=== PATIENT | male | born 1955 | race Caucasian/White ===

== ENCOUNTER 2018-03-11 14:39 | Inpatient (IN) | payer OTHER ==
--- NOTE | 2018-03-11 17:09 | C.PDOC ---
History Of Present Illness 62 y/o male presents to the ER for evaluation of left elbow, left ribs, and left hip which began after he fell 2 days ago. Patient states that he is not sure of how he fell. Patient reports that he saw his PMD who referred him to the ER.Denies having weakness, numbness, and other complaints at this time. Of note, HPI is limited because patient is poor historian. - HPI Time Seen by Provider: 03/11/18 15:55 Chief Complaint (Nursing): Abdominal Pain History Per: Patient History/Exam Limitations: other (poor historian) Onset/Duration Of Symptoms: Days Severity: Moderate Past Medical History Reviewed: Historical Data, Nursing Documentation, Vital Signs Vital Signs: Last Vital Signs Temp 99.0 F 03/13/18 15:13 Pulse 106 H 03/13/18 16:00 Resp 20 03/13/18 15:13 BP 152/88 H 03/13/18 14:20 Pulse Ox 96 03/13/18 15:13 - Medical History PMH: Bronchitis, Diabetes, HTN Surgical History: No Surg Hx Family History: States: No Known Family Hx - Social History Hx Tobacco Use: No Hx Alcohol Use: No Hx Substance Use: No - Immunization History Hx Tetanus Toxoid Vaccination: No Hx Influenza Vaccination: No Hx Pneumococcal Vaccination: No Review Of Systems Except As Marked, All Systems Reviewed And Found Negative. Constitutional: Negative for: Fever, Chills Cardiovascular: Negative for: Other (left -sided rib pain) Musculoskeletal: Positive for: Other (left elbow, left hip pain) Neurological: Negative for: Weakness, Numbness Physical Exam - Physical Exam Appears: Non-toxic, No Acute Distress Skin: Normal Color, Warm, Dry Head: Atraumatic, Normacephalic Eye(s): bilateral: Normal Inspection Nose: Normal Oral Mucosa: Moist Neck: Supple Chest: Symmetrical, Tenderness (tenderness to left side) Cardiovascular: Rhythm Regular Respiratory: Normal Breath Sounds, No Rales, No Rhonchi, No Wheezing Gastrointestinal/Abdominal: Normal Exam, Soft, No Tenderness, No Guarding, No Rebound Extremity: Normal ROM, Tenderness (tenderness to left elbow,left hip, and left knee) Neurological/Psych: Oriented x3, Normal Speech ED Course And Treatment - Laboratory Results Result Diagrams: 03/13/18 08:37 03/13/18 17:08 ECG: Interpreted By Me, Viewed By Me ECG Rhythm: Sinus Rhythm Interpretation Of ECG: NSR with repolarization abnormality Rate From EC O2 Sat by Pulse Oximetry: 99 (RA) Pulse Ox Interpretation: Normal - CT Scan/US CT Head Other Rad Studies (CT/US): Read By Radiologist, Radiology Report Reviewed CT/US Interpretation: EXAM: CT Head Without Intravenous Contrast. CLINICAL HISTORY: 62 years old, male; Injury or trauma; Fall; Initial encounter; Blunt trauma (contusions or hematomas). TECHNIQUE: Axial computed tomography images of the head/brain without intravenous contrast. All CT scans at. this facility use at least one of these dose optimization techniques: automated exposure control; mA. and/or kV adjustment per patient size (includes targeted exams where dose is matched to clinical. indication); or iterative reconstruction. COMPARISON: No relevant prior studies available. FINDINGS: Brain: Mild to moderate volume loss is seen in keeping with age, with mild decrease in attenuation of. the periventricular white matter likely related to small vessel ischemic change. The brain otherwise. appears unremarkable. There is normal toro-white matter differentiation, demonstrating no edema,. mass effect , acute hemorrhage, or focal mass. Ventricles: Unremarkable. No ventriculomegaly. Bones/joints: Unremarkable. No acute fracture. Soft tissues : Unremarkable. Sinuses: Mucosal thickening associated with the frontal sinuses and ethmoids. The remaining. sinuses appear clear of fluid and mucoperiosteal thickening. Mastoid air cells: Unremarkable as visualized. No mastoid effusion. IMPRESSION: Age -related atrophy and chronic white matter ischemic changes, with no evidence of an acute. intracranial abnormality. Mild Sinus Disease As above. Left Lower Extremity CT Other Rad Studies (CT/US): Read By Radiologist, Radiology Report Reviewed CT/US Interpretation: EXAM: CT Left Lower Extremity Without Intravenous Contrast, Hip. CLINICAL HISTORY: 62 years old, male; Injury or trauma; Fall; Initial encounter; Fracture, traumatic; Nondisplaced; Hip;. Left; Additional info: Trauma, hip fracture. TECHNIQUE: Axial computed tomography images of the left hip without intravenous contrast. All CT scans at this. facility use at least one of these dose optimization techniques: automated exposure control; mA. and/or kV adjustment per patient size (includes targeted exams where dose is matched to clinical. indication); or iterative reconstruction. COMPARISON: No relevant prior studies available. FINDINGS: Bones/joints: The bones show no destructive lytic osseous changes, no periosteal reaction. Small. subcapital left hip fracture with mild impaction displacement, no significant angulation is seen. No. dislocation. Soft tissues: There has been a left inguinal hernia repair. No evidence of soft tissue hematoma. IMPRESSION: There is a subcapital fracture of the left hip as described CT Abdomen/Pelvis Other Rad Studies (CT/US): Read By Radiologist, Radiology Report Reviewed CT/US Interpretation: EXAM: CT Abdomen and Pelvis With Intravenous Contrast. CLINICAL HISTORY: 62 years old, male; Pain and injury or trauma; Fall; Initial encounter; Swelling; Lower; Abdominal. pain; Flank; Left lower quadrant (llq). TECHNIQUE: Axial computed tomography images of the abdomen and pelvis with intravenous contrast. All CT. scans at this facility use at least one of these dose optimization techniques: automated exposure. control; mA and/or kV adjustment per patient size (includes targeted exams where dose is matched to. clinical indication); or iterative reconstruction. CONTRAST: 100 mL of VISIPAQUW 320 administered intravenously. COMPARISON: No relevant prior studies available. FINDINGS: Artifacts: Motion artifact does moderately limit the sensitivity of this examination. Lung bases: The visualized portions of the lung bases are normal. ABDOMEN: Liver: Liver is normal without focal injury, laceration or hematoma. Gallbladder and bile ducts: Unremarkable. No calcified stones. No ductal dilation. No significant. wall thickening. Pancreas: Unremarkable. No mass. No ductal dilation. Spleen: There is no evidence for for splenic injury or focal laceration. No perisplenic hemorrhage or. fluid seen. Adrenals: Unremarkable. No mass. Kidneys and ureters: Both kidneys are normal in morphology and demonstrate homogeneous. enhancement without mass. No ureteral enlargement or stones are noted. Stomach and bowel: Bowel loops appear within normal limits, no signs of wall thickening, mucosal. edema, or bowel distention. PELVIS: Appendix: The appendix is not definitively visualized. However, no secondary signs of appendicitis. are present. Bladder: Unremarkable. No mass. Reproductive: Prostate is slightly prominent. ABDOMEN and PELVIS: Intraperitoneal space: No evidence of mesenteric hematoma contusion, no free fluid or hemorrhage. in the peritoneal cavity. No free air. Bones/joints: There are healed left rib fractures. The spine demonstrates moderate degenerative. changes at multiple levels. Partially impacted and minimally displaced subcapital fracture of the left. hip. No dislocation. Soft tissues: Unremarkable. Vasculature: The aorta demonstrates moderate atherosclerotic calcification. No abdominal aortic. aneurysm. Lymph nodes: Unremarkable. No enlarged lymph nodes. IMPRESSION: There is an acute subcapital fracture of the left hip present. Please see CT left hip report. Otherwise no acute findings or significant abdominal or pelvic injuries. Incidental and other non-acute findings are described above. Left Upper Extremity CT Other Rad Studies (CT/US): Read By Radiologist, Radiology Report Reviewed CT/US Interpretation: EXAM: CT Left Upper Extremity Without Intravenous Contrast, Elbow. CLINICAL HISTORY: 62 years old, male; Injury or trauma; Fall ; Initial encounter; Fracture, traumatic injury; Nondisplaced;. Elbow; Left; Additional info: Trauma, elbow fracture. TECHNIQUE: Axial computed tomography images of the left elbow without intravenous contrast. All CT scans at. this facility use at least one of these dose optimization techniques: automated exposure control; mA. and/or kV adjustment per patient size (includes targeted exams where dose is matched to clinical. indication); or iterative reconstruction. COMPARISON: No relevant prior studies available. FINDINGS: Bones/joints: Fracture is present involving the distal humerus with intra- articular extension which is. mildly displaced. This involves the lateral epicondyle. There is moderate hemarthrosis present. involving the elbow joint. No dislocation is present. There are healed left rib fractures. Soft tissues: There is moderate soft tissue edema posterior to the elbow. Elbow joint continued: There is moderate joint space loss and adaptive sclerosis of the elbow joint. presence with small marginal osteophytes. IMPRESSION: Intra- articular fracture of the elbow originating from the lateral epicondyle with moderate. hemarthrosis rate. Degenerative changes at the elbow joint as described. Moderate soft tissue edema associated with the elbow posterior to olecranon. No dislocation of the joint. Medical Decision Making Medical Decision Making: Plan: --Labs --UA --X-Ray-Left Chest an Ribs --X-Ray - Left Elbow --X- Ray - Hip/Pelvis --X-Ray - Left Femur --X-Ray- Left Knee --Tylenol PO Disposition - Disposition Disposition: HOSPITALIZED Disposition Time: 11:00 Condition: FAIR - Clinical Impression Clinical Impression: Rib fracture, Elbow fracture, Hip fracture - Scribe Statement The provider has reviewed the documentation as recorded by the Alessio Feliciano Provider Attestation: All medical record entries made by the Scribe were at my direction and personally dictated by me. I have reviewed the chart and agree that the record accurately reflects my personal performance of the history, physical exam, medical decision making, and the department course for this patient. I have also personally directed, reviewed, and agree with the discharge instructions and disposition. Decision To Admit - Pt Status Changed To: Hospital Disposition Of: Inpatient - Admit Certification Admit to Inpatient:: After my assessment, the patient will require hospitalization for at least two midnights. This is because of the severity of symptoms shown, intensity of services needed, and/or the medical risk in this patient being treated as an outpatient. - InPatient: Physician Admission Certification: I certify that this patient requires 2 or more midnights of care for the following reason:: needs or - . Bed Request Type: Regular Admitting Physician: Adali Beach Patient Diagnosis: Rib fracture, Elbow fracture, Hip fracture
--- NOTE | 2018-03-11 17:16 | RAD ---
PROCEDURE: Radiographs of the Chest and Left Ribs. HISTORY: trauma COMPARISON: Chest radiograph dated 04/25/2016. TECHNIQUE: Frontal radiograph of the chest and multiple oblique radiographs of the left ribs were obtained. FINDINGS: LEFT RIBS: Minimally displaced fractures of the lateral left 7th-9th ribs. Questionable minimally displaced fracture of the lateral left 2nd rib. LUNGS: Clear. PLEURA: No pneumothorax or pleural fluid. CARDIOVASCULAR: Normal sized heart. No pulmonary vascular congestion. OTHER FINDINGS: None. IMPRESSION: Minimally displaced fractures of the left lateral 7th- 9th ribs. Questionable minimally displaced fracture of the left lateral 2nd rib.
--- NOTE | 2018-03-11 17:17 | RAD ---
PROCEDURE: Radiographs of the pelvis and bilateral hips HISTORY: trauma COMPARISON: None. FINDINGS: BONES: Pelvis: Unremarkable. Right hip:Unremarkable. Left hip:Minimally displaced subcapital femoral neck fracture. JOINTS: Right hip: Unremarkable. Left hip: Unremarkable. Sacroiliac Joints: Unremarkable. Pubic symphysis: Unremarkable. SOFT TISSUES: Normal. OTHER FINDINGS: None. IMPRESSION: Minimally displaced left subcapital femoral neck fracture.
--- NOTE | 2018-03-11 17:18 | RAD ---
PROCEDURE: Left Knee Radiographs. HISTORY: Pain. COMPARISON: None. FINDINGS: BONES: No acute fracture. JOINTS: Tricompartmental narrowing without significant degenerative spurring. JOINT EFFUSION: None. OTHER FINDINGS: None. IMPRESSION: No demonstrated fracture dislocation. Mild degenerative changes.
--- NOTE | 2018-03-11 17:20 | RAD ---
PROCEDURE: Radiographs of the left elbow. HISTORY: trauma COMPARISON: No prior. FINDINGS: BONES: Comminuted intra-articular fracture of the lateral condyle. JOINTS: Medial subluxation of the radius and ulna relative to the humerus. SOFT TISSUES: Diffuse soft-tissue swelling. JOINT EFFUSION: Large anterior joint effusion. OTHER FINDINGS: None IMPRESSION: Comminuted intra-articular fracture of the distal humerus as described above with medial subluxation of the radius and ulna.
--- NOTE | 2018-03-11 17:21 | RAD ---
PROCEDURE: Left Femur Radiographs. HISTORY: trauma COMPARISON: None. TECHNIQUE: AP and Lateral Radiographs of the left femur. FINDINGS: FEMUR: Subcapital femoral neck fracture. SOFT TISSUES: Normal. OTHER FINDINGS: None. IMPRESSION: Subcapital femoral neck fracture.
[2018-03-11 17:43] LABS: BASO % 0.7 % (0.0-2.0); EOS # 0.1 K/uL (0.0-0.7); EOS % 2.3 % (0.0-4.0); HEMOGLOBIN 13.4 g/dL (12.0-18.0); LYMPH # 1.4 K/uL (1.0-4.3); LYMPH % 38.1 % (20.0-40.0); MEAN CELL VOLUME 86.3 fL (80.0-94.0); MEAN CORPUSCULAR HEMOGLOBIN 28.6 pg (27.0-31.0); MEAN CORPUSCULAR HGB CONC 33.2 g/dL (33.0-37.0); MEAN PLATELET VOLUME 8.8 fL (7.2-11.7); MONO # 0.4 K/uL (0.0-0.8); MONO % 9.5 % (0.0-10.0); NEUT # 1.9 K/uL (1.8-7.0); NEUT % 49.4 % (50.0-75.0); RBC 4.67 Mil/uL (4.40-5.90); RED CELL DISTRIBUTION WIDTH 14.9 % (11.5-14.5); WHITE BLOOD COUNT 3.8 K/uL (4.8-10.8)
[2018-03-11 17:58] LABS: INR 1.2; PROTHROMBIN TIME 13.6 SECONDS (9.7-12.2)
[2018-03-11 17:59] LABS: ALB/GLOB RATIO 1.6 (1.0-2.1); ALBUMIN 4.4 g/dL (3.5-5.0); ALT/SGPT 25 U/L (21-72); AST/SGOT 34 U/L (17-59); BLOOD UREA NITROGEN 13 mg/dL (9-20); CALCIUM 9.4 mg/dl (8.6-10.4); GFR AFRICAN-AMERICAN > 60; GFR NON-AFRICAN AMERICAN > 60; LIPASE 289 U/L (23-300)
[2018-03-11] MEDS ORDERED: Potassium Chloride 20 mEq ER Tab PO STA (18:08)
[2018-03-11] MEDS ORDERED: Morphine 4 MG/ML VIAL ONE ×2 (18:49→18:54)
[2018-03-11] MEDS ORDERED: Potassium Chloride 20 mEq ER Tab PO ONE (18:49)
[2018-03-11] MEDS ORDERED: Iodixanol 320 MG/ML 100 ML BOTTLE IV ONE (18:56)
[2018-03-11 20:09] LABS: URINE BILIRUBIN NEGATIVE (NEGATIVE); URINE BLOOD 1+ (NEGATIVE); URINE CLARITY Clear (Clear); URINE COLOR Yellow (YELLOW); URINE GLUCOSE (UA) NORMAL (Normal); URINE LEUKOCYTE ESTERASE TRACE Leu/uL (Negative); URINE PROTEIN NEGATIVE (NEGATIVE); URINE UROBILINOGEN NORMAL mg/dL (0.2-1.0)
[2018-03-12] MEDS ORDERED: Oxycodone/Acetaminophen 5/325 mg Tab ONE ×2 (00:26→06:33)
[2018-03-12] MEDS: Oxycodone/Acetaminophen 5/325 mg Tab PO PRN ×4 (00:27→22:37)
--- NOTE | 2018-03-12 08:01 | CT ---
Date of service: 03/11/2018 PROCEDURE: CT HEAD WITHOUT CONTRAST. HISTORY: trauma COMPARISON: 04/25/2016 TECHNIQUE: Axial computed tomography images were obtained through the head/brain without intravenous contrast. Radiation dose: Total exam DLP = 918 mGy-cm. This CT exam was performed using one or more of the following dose reduction techniques: Automated exposure control, adjustment of the mA and/or kV according to patient size, and/or use of iterative reconstruction technique. FINDINGS: HEMORRHAGE: No intracranial hemorrhage. BRAIN: Mild to moderate volume loss is seen in keeping with mild decreased attenuation of the periventricular white matter likely related to small vessel ischemic change. Stable area of low attenuation seen within the anterior medial right temporal lobe best seen on series 4, image 9 suggestive for possible chronic ischemic change. VENTRICLES: Unremarkable. No hydrocephalus. CALVARIUM: Unremarkable. PARANASAL SINUSES: Mucosal thickening of the frontal sinuses and ethmoid air cells. MASTOID AIR CELLS: Unremarkable as visualized. No inflammatory changes. OTHER FINDINGS: None. IMPRESSION: Age related atrophy and chronic white matter ischemic changes. Stable area of low attenuation seen within the anterior medial right temporal lobe best seen on series 4, image 9 suggestive for possible chronic ischemic change. Sinus mucosal disease as above. If symptoms persist, consider correlation with MRI. These findings were preliminarily reported at 8:15 p.m. on 03/11/[address] Beatriz Whitehead from [facility].
--- NOTE | 2018-03-12 08:35 | RAD ---
Date of service: 03/11/2018 PROCEDURE: Radiographs of the left elbow. HISTORY: post splint COMPARISON: Left elbow x-ray 03/11/2018: At 16:40 7 hours FINDINGS: BONES: Examination through casting splinting. A a lateral humeral epicondylar fracture with intra-articular extension is suggested. This is superimposed on ground elbow joint diffuse arthrosis and cystic change. Additional fractures including comminution possible. Note a same-day CT report for fracture mapping. JOINTS: Arthrosis present SOFT TISSUES: No significant swelling - however paucity of muscle mass already suggested JOINT EFFUSION: Present OTHER FINDINGS: None IMPRESSION: On this exam the overall humerus appears not grossly dislocated on. Large lateral humeral epicondylar fracture fragment -probable superimpose comminution here with intra-articular extension. All findings superimposed on advanced cystic and mildly sclerotic arthrosis.
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
[2018-03-12 08:55] LABS: HEMOGLOBIN 13.8 g/dL (12.0-18.0); MEAN CELL VOLUME 85.7 fL (80.0-94.0); MEAN CORPUSCULAR HEMOGLOBIN 29.3 pg (27.0-31.0); MEAN CORPUSCULAR HGB CONC 34.2 g/dL (33.0-37.0); MEAN PLATELET VOLUME 9.2 fL (7.2-11.7); RBC 4.7 Mil/uL (4.40-5.90); RED CELL DISTRIBUTION WIDTH 14.5 % (11.5-14.5); WHITE BLOOD COUNT 2.9 K/uL (4.8-10.8)
[2018-03-12 08:59] LABS: INR 1.2; PROTHROMBIN TIME 13.6 SECONDS (9.7-12.2)
[2018-03-12 09:18] LABS: ALB/GLOB RATIO 1.4 (1.0-2.1); ALBUMIN 3.9 g/dL (3.5-5.0); ALT/SGPT 34 U/L (21-72); AST/SGOT 35 U/L (17-59); BLOOD UREA NITROGEN 7 mg/dL (9-20); GFR AFRICAN-AMERICAN > 60; GFR NON-AFRICAN AMERICAN > 60
[2018-03-12] MEDS: Potassium Chloride 20 mEq ER Tab PO SCH (10:13)
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
--- NOTE | 2018-03-12 11:32 | CT ---
Date of service: 03/11/2018 PROCEDURE: CT Abdomen and Pelvis with contrast HISTORY: trauma COMPARISON: None. TECHNIQUE: Contrast dose: 100 cc of Visipaque 320. Axial and reformatted coronal and sagittal CT images of the abdomen and pelvis were obtained after IV contrast administration. Radiation dose: Total exam DLP = 585.73 mGy-cm. This CT exam was performed using one or more of the following dose reduction techniques: Automated exposure control, adjustment of the mA and/or kV according to patient size, and/or use of iterative reconstruction technique. FINDINGS: LOWER THORAX: Unremarkable. LIVER: Unremarkable. No gross lesion or ductal dilatation. GALLBLADDER AND BILE DUCTS: Unremarkable. PANCREAS: Unremarkable. No gross lesion or ductal dilatation. SPLEEN: Unremarkable. ADRENALS: Unremarkable. No mass. KIDNEYS AND URETERS: Unremarkable. No hydronephrosis. No solid mass. VASCULATURE: Unremarkable. No aortic aneurysm. BOWEL: Mild constipation is noted. No obstruction. No gross mural thickening. APPENDIX: Normal appendix. PERITONEUM: Unremarkable. No free fluid. No free air. LYMPH NODES: Unremarkable. No enlarged lymph nodes. BLADDER: Mild urinary bladder wall thickening. REPRODUCTIVE: Moderately enlarged prostate and seminal vesicles are noted. BONES: There is acute nondisplaced left subcapital femoral fracture. There are subacute fractures at the left lower ribs associated with callus formation. OTHER FINDINGS: None. IMPRESSION: No evidence of upper abdomen solid organs laceration or hematoma. No evidence of free fluid or free air in the abdomen and pelvis. Acute subcapital fracture of the left hip/femoral neck noted. Subacute fractures at the left lower ribs. Preliminary report was submitted by [facility]
--- NOTE | 2018-03-12 11:42 | RAD ---
Date of service: 03/12/2018 PROCEDURE: Radiographs of the Left Forearm HISTORY: fall, pain COMPARISON: Left elbow 03/11/2018 TECHNIQUE: Frontal and lateral views obtained. FINDINGS: BONES: The humeral lateral epicondylar fracture dominant fragment is renoted hypertrophic diffuse elbow joint arthrosis noted. The radial capitellum joint alignment appears intact. The humeral ulnar articulation is probably intact based on the same-day available left the CT study as well. Projections somewhat limiting optimal assessment No radial or ulnar fractures appreciated. JOINT SPACES: Narrowed with hypertrophic arthrosis and ossific debris at the elbow joint level. Radiocarpal joint space narrowing also suggested. OTHER FINDINGS: None. IMPRESSION: No radial or ulnar fractures appreciated. Large lateral humeral epicondylar fracture fragment. This is superimposed on the elbow level advanced hypertrophic arthrosis with a bordering degenerative like debris
--- NOTE | 2018-03-12 11:59 | CT ---
Date of service: 03/11/2018 PROCEDURE: CT of the left hip without contrast HISTORY: trauma, hip fracture COMPARISON: Comparison is made to the previous x-ray of the left femur done on the same date. TECHNIQUE: Axial and reformatted coronal and sagittal CT images of the left hip were obtained without IV contrast administration. Total exam DLP 166.41 FINDINGS: There is acute comminuted and mildly displaced left subcapital fracture noted at the left femoral head and proximal neck. . There is no evidence of dislocation of the left hip. Mild osteoarthritic changes are noted at the left hip. No evidence of left hip significant joint effusion or hematoma. The visualize soft tissue at the left pelvis demonstrate no acute pathology. IMPRESSION: Acute subcapital fracture of the left hip as described. No evidence of dislocation. Preliminary report was submitted by [facility].
--- NOTE | 2018-03-12 12:18 | CT ---
Date of service: 03/11/2018 PROCEDURE: CT of the left elbow without contrast HISTORY: trauma, elbow fracture COMPARISON: Comparison is made to the previous x-ray of the left elbow do done on the same date. TECHNIQUE: Thin axial and reformatted coronal and sagittal CT images of the left elbow were obtained without contrast administration. 3D reformatted images of the left elbow were also obtained. Total exam DLP 416.29 FINDINGS: There is a comminuted mildly displaced intra-articular fracture at the distal left humerus extending from the lateral epicondyles to the coronoid and radial fossa. There is [id number] hemarthrosis noted. Moderate degenerative changes are noted at the left elbow joint. There are small bony fragments seen at the left elbow joint more prominent in the anterior aspect of the joint is space. Mild deformity noted at the proximal left radial head could be due to degenerative changes or old fracture. No evidence of dislocation. [id number] soft tissue swelling. IMPRESSION: Acute comminuted intra-articular fracture of the distal left humerus extending from the lateral epicondyles to the coronoid and radial fossa. [id number] left elbow hemarthrosis. Preliminary report was submitted by [facility].
[2018-03-12 13:47] LABS: BLOOD UREA NITROGEN 7 mg/dL (9-20); GFR AFRICAN-AMERICAN > 60; GFR NON-AFRICAN AMERICAN > 60
[2018-03-12 13:57] VITALS: RESP 20
--- NOTE | 2018-03-12 18:29 | CP.PCM.CON ---
History of Present Illness - History of Present Illness History of Present Illness: 62 year old male with vit d deficiency, presenting with left elbow and left hip pain s/p fall, found to have a left humeral fracture and left hip fracture requiring orthopedic surgical fixation, found to have coagulopathy. The patient denies abnormal bleeding and bruising. He is unaware of having blood problems in the past. Past medical history: Vit D deficiency Past surgical history: Testicular surgery Family history: Denies hematologic and oncologic problems Social history: Denies tobacco, alcohol, and illicit drug use. Allergies: NKA Review of systems: All remaining review of systems including HEENT, cardiovascular, respiratory, gastrointestinal, genitourinary, musculoskeletal, dermatologic, neurologic, and psychiatric are negative unless mentioned in the HPI. Past Patient History - Past Medical History & Family History Past Medical History?: Yes Past Family History: Reviewed and not pertinent - Past Social History Smoking Status: Former Smoker - CARDIAC Hx Hypertension: Yes - PULMONARY Hx Bronchitis: Yes - NEUROLOGICAL Hx Neurological Disorder: No - HEENT Hx HEENT Problems: No - RENAL Hx Chronic Kidney Disease: No - ENDOCRINE/METABOLIC Hx Diabetes Mellitus Type 2: Yes - HEMATOLOGICAL/ONCOLOGICAL Hx Blood Disorders: No - INTEGUMENTARY Hx Dermatological Problems: No - MUSCULOSKELETAL/RHEUMATOLOGICAL Hx Falls: Yes - GENITOURINARY/GYNECOLOGICAL Hx Genitourinary Disorders: Yes Other/Comment: ''SCROTAL PROBLEM'' - PSYCHIATRIC Hx Substance Use: No - SURGICAL HISTORY Other/Comment: hx hernia repair - ANESTHESIA Hx Anesthesia: Yes Hx Anesthesia Reactions: No Hx Malignant Hyperthermia: No Meds Allergies/Adverse Reactions: Allergies Allergy/AdvReac Type Severity Reaction Status Date / Time No Known Allergies Allergy Verified 11/23/15 10:25 - Medications Medications: Current Medications Heparin Sodium (Porcine) (Heparin) 5,000 units SC Q12 [facility] Last Admin: 03/12/18 10:14 Dose: 5,000 units Oxycodone/Acetaminophen (Percocet 5/325 Mg Tab) 1 tab PO Q6H PRN PRN Reason: Pain, moderate (4-7) Stop: 03/14/18 22:37 Last Admin: 03/12/18 17:30 Dose: 1 tab Pneumococcal Polyvalent Vaccine (Pneumovax 23 Vaccine) 0.5 ml IM .ONCE ONE Stop: 03/15/18 10:01 Potassium Chloride (K-Dur 20 Meq Er Tab) 40 meq PO DAILY [facility] Last Admin: 03/12/18 10:13 Dose: 40 meq Physical Exam - Head Exam Head Exam: ATRAUMATIC - Eye Exam Eye Exam: Normal appearance - ENT Exam ENT Exam: Mucous Membranes Dry - Cardiovascular Exam Cardiovascular Exam: +S1, +S2 - GI/Abdominal Exam GI & Abdominal Exam: Normal Bowel Sounds - Extremities Exam Additional comments: Left upper extremity splint Results - Vital Signs Recent Vital Signs: Last Vital Signs Temp 97.8 F 03/12/18 15:03 Pulse 80 03/12/18 16:00 Resp 20 03/12/18 15:03 BP 129/76 03/12/18 15:03 Pulse Ox 96 03/12/18 15:03 - Labs Result Diagrams: 03/13/18 08:37 03/13/18 08:37 Labs: Laboratory Results - last 24 hr 03/11/18 03/12/18 03/12/18 19:51 08:48 08:48 WBC 2.9 L RBC 4.70 Hgb 13.8 Hct 40.3 MCV 85.7 MCH 29.3 MCHC 34.2 RDW 14.5 Plt Count 172 MPV 9.2 PT 13.6 H INR 1.2 Sodium Potassium Chloride Carbon Dioxide Anion Gap BUN Creatinine Est GFR ( Amer) Est GFR (Non-Af Amer) POC Glucose (mg/dL) Random Glucose Calcium Total Bilirubin AST ALT Alkaline Phosphatase Total Protein Albumin Globulin Albumin/Globulin Ratio Urine Color Yellow Urine Clarity Clear Urine pH 6.0 Ur Specific Draper 1.016 Urine Protein Negative Urine Glucose (UA) Normal Urine Ketones Trace Urine Blood 1+ H Urine Nitrate Negative Urine Bilirubin Negative Urine Urobilinogen Normal Ur Leukocyte Esterase Trace Urine WBC (Auto) 6 H Urine RBC (Auto) 5 H Blood Type Blood Type Confirm Antibody Screen 03/12/18 03/12/18 03/12/18 08:48 08:48 13:29 WBC RBC Hgb Hct MCV MCH MCHC RDW Plt Count MPV PT INR Sodium 142 144 Potassium 2.4 L* 3.1 L Chloride 100 101 Carbon Dioxide 31 H 33 H Anion Gap 14 13 BUN 7 L 7 L Creatinine 0.7 L 0.7 L Est GFR ( Amer) > 60 > 60 Est GFR (Non-Af Amer) > 60 > 60 POC Glucose (mg/dL) Random Glucose 112 H 169 H Calcium 9.0 9.0 Total Bilirubin 1.5 H AST 35 ALT 34 Alkaline Phosphatase 97 Total Protein 6.7 Albumin 3.9 Globulin 2.8 Albumin/Globulin Ratio 1.4 Urine Color Urine Clarity Urine pH Ur Specific Draper Urine Protein Urine Glucose (UA) Urine Ketones Urine Blood Urine Nitrate Urine Bilirubin Urine Urobilinogen Ur Leukocyte Esterase Urine WBC (Auto) Urine RBC (Auto) Blood Type B POSITIVE Blood Type Confirm B POSITIVE Antibody Screen Negative 03/12/18 16:42 WBC RBC Hgb Hct MCV MCH MCHC RDW Plt Count MPV PT INR Sodium Potassium Chloride Carbon Dioxide Anion Gap BUN Creatinine Est GFR ( Amer) Est GFR (Non-Af Amer) POC Glucose (mg/dL) 115 H Random Glucose Calcium Total Bilirubin AST ALT Alkaline Phosphatase Total Protein Albumin Globulin Albumin/Globulin Ratio Urine Color Urine Clarity Urine pH Ur Specific Draper Urine Protein Urine Glucose (UA) Urine Ketones Urine Blood Urine Nitrate Urine Bilirubin Urine Urobilinogen Ur Leukocyte Esterase Urine WBC (Auto) Urine RBC (Auto) Blood Type Blood Type Confirm Antibody Screen Assessment & Plan (1) Coagulopathy Assessment and Plan: left elbow hemarthrosis noted; likely traumatic will give vit K IV if no improvement in PT/INR would recommend 2U FFP prior to OR Status: Acute (2) Leukopenia Assessment and Plan: mild, no neutropenia likely benign Thank you for this interesting consult. Status: Acute
[2018-03-12] MEDS ORDERED: Phytonadione 10 mg/ml Inj (Adult) IV ONE (19:00)
[2018-03-12] MEDS ORDERED: Phytonadione 10 MG in Sodium Chloride 0.9% 50 ML IV ONE (19:30)
--- NOTE | 2018-03-12 23:57 | CON ---
DATE: 03/12/2018 CARDIOLOGY CONSULTATION REASON FOR CONSULTATION: Falls with left elbow and left hip fracture. HISTORY OF PRESENT ILLNESS: The patient is a 62-year-old Chinese male who has a history of hypertension and diabetes mellitus, sustained a fall according to him a week or two ago. The patient was walking on a sidewalk when he felt dizzy and collapsed. The patient apparently fractured his left elbow and left hip; however, he did not go to the emergency room and he went to his primary physician who referred him later onto the emergency room. The patient stated that he had to use a walker since his fall because of left hip pain. The patient did report dizziness prior to the fall but denies any syncope and is unaware of any history of palpitation. The patient is unaware of any prior cardiac issues. SOCIAL HISTORY: Nonsmoker. He is recently, lives with a girlfriend. MEDICATIONS: Heparin 5000 units subcutaneous every 12 hours, K-Dur 20 mEq p.o. once a day, Percocet one tablet p.o. every 6 hours p.r.n. The patient did receive morphine sulfate. The patient at home was on Imodium and Flagyl. PAST MEDICAL HISTORY: Hypertension, diabetes mellitus. PHYSICAL EXAMINATION: GENERAL: The patient is a middle-aged male who does not appear to be in any acute distress. VITAL SIGNS: Blood pressure 127/81, heart rate 74, temperature 98.4, respiration 20. HEENT: Normocephalic. CHEST: Clear. HEART: S1 and S2 regular. ABDOMEN: Soft. EXTREMITIES: A sling is applied to the left elbow. LABORATORY DATA: SMA-7: Sodium 142, potassium 2.4, chloride 100, CO2 is 31, glucose 112, BUN 7, creatinine 0.7. INR is 1.2. Hemoglobin and hematocrit 13.8 and 40.3, white count 2.9, platelet count 172,000. EKG with sinus rhythm left anterior fascicular block, incomplete right bundle branch block. Head CT scan without contrast: Age-related atrophy and chronic white matter ischemic changes. X-ray of the left elbow: Overall humerus appears not grossly dislocated. Large lateral humeral epicondyle fracture, carpal superimposed comminution here with intra-articular extension. All findings superimposed on advanced cystic and mildly sclerotic arthrosis. Pelvic x-ray, minimally displaced left subcapital femoral neck fracture. ASSESSMENT: 1. Status post fall with left epicondylar and left subcapital minimally displaced femoral neck fracture. 2. Hypokalemia. 3. Hyponatremia. RECOMMENDATIONS: Continue current protective placement and repeat potassium level at 4 p.m. Obtain an echocardiogram, carotid Doppler, and consider repeat CT scan without contrast. Start telemetry monitoring. Shashi Alba MD
--- NOTE | 2018-03-13 01:09 | CARD ---
APPROVED REPORT Date of service: 03/11/2018 EKG Measurement Heart [id number] <Conclusion> Normal sinus rhythm Incomplete right bundle branch block Left anterior fascicular block Left ventricular hypertrophy with repolarization abnormality Prolonged QT Abnormal ECG
[2018-03-13] MEDS: Oxycodone/Acetaminophen 5/325 mg Tab PO PRN ×2 (06:10→16:00)
[2018-03-13 08:46] LABS: HEMOGLOBIN 13.8 g/dL (12.0-18.0); MEAN CELL VOLUME 85.8 fL (80.0-94.0); MEAN CORPUSCULAR HEMOGLOBIN 29.3 pg (27.0-31.0); MEAN CORPUSCULAR HGB CONC 34.1 g/dL (33.0-37.0); MEAN PLATELET VOLUME 9.4 fL (7.2-11.7); RBC 4.71 Mil/uL (4.40-5.90); RED CELL DISTRIBUTION WIDTH 14.7 % (11.5-14.5); WHITE BLOOD COUNT 3.8 K/uL (4.8-10.8)
[2018-03-13 08:50] LABS: INR 1.2; PROTHROMBIN TIME 12.8 SECONDS (9.7-12.2)
--- NOTE | 2018-03-13 09:28 | CP.PCM.PN ---
Subjective - Date & Time of Evaluation Date of Evaluation: 03/13/18 Time of Evaluation: 12:51 - Subjective Subjective: Patient initially refused echo, now agrees. Per RN, patient walking with cane in hallway. Objective - Vital Signs/Intake and Output Vital Signs (last 24 hours): Temp Pulse Resp BP Pulse Ox 97.8 F 87 20 150/88 95 03/13/18 07:50 03/13/18 07:50 03/13/18 07:50 03/13/18 07:50 03/13/18 07:50 Intake and Output: 03/13/18 03/13/18 06:59 18:59 Intake Total 480 240 Balance 480 240 - Medications Medications: Current Medications Heparin Sodium (Porcine) (Heparin) 5,000 units SC Q12 [facility] Last Admin: 03/12/18 22:37 Dose: 5,000 units Oxycodone/Acetaminophen (Percocet 5/325 Mg Tab) 1 tab PO Q6H PRN PRN Reason: Pain, moderate (4-7) Stop: 03/14/18 22:37 Last Admin: 03/13/18 06:10 Dose: 1 tab Pneumococcal Polyvalent Vaccine (Pneumovax 23 Vaccine) 0.5 ml IM .ONCE ONE Stop: 03/15/18 10:01 Potassium Chloride (K-Dur 20 Meq Er Tab) 40 meq PO DAILY [facility] Last Admin: 03/12/18 10:13 Dose: 40 meq - Labs Labs: 03/13/18 08:37 03/12/18 13:29 PT 12.8 SECONDS (9.7-12.2) H 03/13/18 08:37 INR 1.2 03/13/18 08:37 APTT 30 SECONDS (21-34) 03/11/18 17:40 - Extremities Exam Additional comments: LLE: +ROM ankle/toes, sensation intact, +DP/PTpulses calves soft NT neg homans LUE: +ROM fingers/wrist, sensation intact, +radial pulse Assessment and Plan (1) Closed subcapital fracture of left femur Assessment & Plan: will need hip replacement when medically optimized VTE proph, SCDs, on heparin per Dr. Beach, will hold prior to OR when scheduled f/u labs repeat PT in am, heme consult appreciated repeat K T&C d/w Dr. Tan, agrees with above Status: Acute (2) Closed fracture of left distal humerus Status: Acute (3) Hypokalemia Status: Acute (4) Vitamin D deficiency Assessment & Plan: supp Status: Acute
[2018-03-13 09:29] LABS: BLOOD UREA NITROGEN 8 mg/dL (9-20); CALCIUM 9.1 mg/dl (8.6-10.4); GFR AFRICAN-AMERICAN > 60; GFR NON-AFRICAN AMERICAN > 60
[2018-03-13] MEDS: Potassium Chloride 20 mEq ER Tab PO SCH (09:29)
[2018-03-13] MEDS ORDERED: Ergocalciferol 50,000 Intl Units Cap PO SCH (09:30)
--- NOTE | 2018-03-13 13:37 | CP.PCM.PN ---
Subjective - Date & Time of Evaluation Date of Evaluation: 03/13/18 Time of Evaluation: 13:34 - Subjective Subjective: pt think that he heared adoctor calling the police for him no distress oriented Objective - Vital Signs/Intake and Output Vital Signs (last 24 hours): Temp Pulse Resp BP Pulse Ox 97.8 F 87 20 150/88 95 03/13/18 07:50 03/13/18 07:50 03/13/18 07:50 03/13/18 07:50 03/13/18 07:50 Intake and Output: 03/13/18 03/13/18 06:59 18:59 Intake Total 480 240 Balance 480 240 - Medications Medications: Current Medications Ergocalciferol (Drisdol 50,000 Intl Units Cap) 1 cap PO Q7D [facility] Heparin Sodium (Porcine) (Heparin) 5,000 units SC Q12 [facility] Last Admin: 03/13/18 09:28 Dose: 5,000 units Potassium Chloride (Potassium Chloride 20 Meq/100 Ml) 20 meq in 100 mls @ 50 mls/hr IVPB ONCE ONE Stop: 03/13/18 15:29 Oxycodone/Acetaminophen (Percocet 5/325 Mg Tab) 1 tab PO Q6H PRN PRN Reason: Pain, moderate (4-7) Stop: 03/14/18 22:37 Last Admin: 03/13/18 06:10 Dose: 1 tab Pneumococcal Polyvalent Vaccine (Pneumovax 23 Vaccine) 0.5 ml IM .ONCE ONE Stop: 03/15/18 10:01 Potassium Chloride (K-Dur 20 Meq Er Tab) 40 meq PO DAILY [facility] Last Admin: 03/13/18 09:29 Dose: 40 meq - Labs Labs: 03/13/18 08:37 03/13/18 08:37 PT 12.8 SECONDS (9.7-12.2) H 03/13/18 08:37 INR 1.2 03/13/18 08:37 APTT 30 SECONDS (21-34) 03/11/18 17:40 - Constitutional Appears: Non-toxic - Head Exam Head Exam: NORMAL INSPECTION - Eye Exam Eye Exam: Normal appearance Pupil Exam: NORMAL ACCOMODATION - ENT Exam ENT Exam: Mucous Membranes Moist - Neck Exam Neck Exam: Full ROM - Respiratory Exam Respiratory Exam: Clear to Ausculation Bilateral Additional comments: tender l side - Cardiovascular Exam Cardiovascular Exam: REGULAR RHYTHM - GI/Abdominal Exam GI & Abdominal Exam: Normal Bowel Sounds - Rectal Exam Rectal Exam: NORMAL INSPECTION - Extremities Exam Extremities Exam: Tenderness Additional comments: elbow fx l hip fx - Back Exam Back Exam: NORMAL INSPECTION - Neurological Exam Neurological Exam: Alert, Normal Gait - Psychiatric Exam Psychiatric exam: Normal Affect Additional comments: auditory halucination - Skin Skin Exam: Normal Color Assessment and Plan - Assessment and Plan (Free Text) Assessment: muliple fx htnhtds ac aud halucination Plan: will consult dr pichardo
--- NOTE | 2018-03-13 14:05 | CARD ---
APPROVED REPORT Date of service: 03/13/2018 EXAM: Two-dimensional and M-mode echocardiogram with Doppler and color Doppler. INDICATION Dizziness and Vertigo Dyspnea Chest Pain RISK FACTORS Hypertension Diabetes 2D DIMENSIONS IVSd0.9 (0.7-1.1cm)LVDd4.2 (3.9-5.9cm) PWd1.0 (0.7-1.1cm)LVDs3.3 (2.5-4.0cm) FS (%) 20.9 %LVEF (%)42.9 (>50%) M-Mode DIMENSIONS Left Atrium (MM)3.75 (2.5-4.0cm)Aortic Root3.56 (2.2-3.7cm) Aortic Cusp Exc.1.95 (1.5-2.0cm) Aortic Valve AI P 1/2 [id number] Mitral Valve MV E Cxkpdfgf71.2cm/sMV A Adzxqyka22.3cm/sE/A ratio1.1 TDI E/Lateral E'0.0E/Medial E'0.0 Tricuspid Valve TR Peak [id number]/sTR Peak [id number] LEFT VENTRICLE The left ventricle is normal size. There is normal left ventricular wall thickness. The left ventricular function is normal. The left ventricular ejection fraction is within the normal range. No regional wall motion abnormalities noted. The left ventricular diastolic function is normal. No left ventricle thrombus noted on this study. There is no ventricular septal defect visualized. There is no left ventricular aneurysm. There is no mass noted in the left ventricle. RIGHT VENTRICLE The right ventricle is normal size. There is normal right ventricular wall thickness. The right ventricular systolic function is normal. ATRIA The left atrium size is normal. The right atrium size is normal. The interatrial septum is intact with no evidence for an atrial septal defect. AORTIC VALVE The aortic valve is normal in structure and function. There is moderate aortic regurgitation. There is no aortic valvular stenosis. There is no aortic valvular vegetation. MITRAL VALVE The mitral valve is normal in structure and function. There is no evidence of mitral valve prolapse. There is no mitral valve stenosis. There is no mitral valve regurgitation noted. TRICUSPID VALVE The tricuspid valve is normal in structure and function. There is mild tricuspid regurgitation. Right ventricular systolic pressure is estimated at less than 30 mmHg. There is no tricuspid valve prolapse or vegetation. There is no tricuspid valve stenosis. PULMONIC VALVE The pulmonary valve is normal in structure and function. There is no pulmonic valvular regurgitation. There is no pulmonic valvular stenosis. GREAT VESSELS The aortic root is normal in size. The ascending aorta is normal in size. The pulmonary artery is normal. The IVC is normal in size and collapses >50% with inspiration. PERICARDIAL EFFUSION The pericardium appears normal. There is no pleural effusion. <Conclusion> The left ventricular function is normal. The left ventricular ejection fraction is within the normal range. No regional wall motion abnormalities noted. There is moderate aortic regurgitation.
[2018-03-13 14:22] VITALS: BP 152/88
[2018-03-13 16:06] VITALS: TEMP 99
[2018-03-13 16:53] VITALS: PULSE 106
[2018-03-13 18:25] LABS: BLOOD UREA NITROGEN 8 mg/dL (9-20); CALCIUM 9.6 mg/dl (8.6-10.4); GFR AFRICAN-AMERICAN > 60; GFR NON-AFRICAN AMERICAN > 60
--- NOTE | 2018-03-13 19:34 | PN ---
DATE: 03/13/2018 SUBJECTIVE: The patient denied any chest pain or dizziness. PHYSICAL EXAMINATION: VITAL SIGNS: Blood pressure 150/88, heart rate 87, temperature 97.8, respiration 20. HEENT: Normocephalic. CHEST: Clear. HEART: S1 and S2, regular. EXTREMITIES: No edema. LABORATORY DATA: SMA-7; sodium 144, potassium 2.6, chloride 102, CO2 of 33, chloride is 109, BUN 8, creatinine 0.7. Today's hemoglobin and hematocrit are within normal limit. White count 3.8, platelet count 178,000. Preliminary echocardiographic study revealed ejection fraction at 42.9%, moderate aortic insufficiency. My own review was consistent with apical hypokinesis. ASSESSMENT: 1. Status post fall with left elbow and left femur neck fracture. 2. Mild depressed left ventricular systolic function with apical hypokinesis. 3. Hypokalemia. 4. Diabetes mellitus. RECOMMENDATIONS: Continue subcutaneous heparin 5000 units every 12 hours, K-Dur 20 mEq once a day. Continue IV potassium and chloride replacement. Obtain a followup BMP this afternoon. The patient can undergo open reduction and internal fixation for both left elbow and left hip fracture under general anesthesia with moderate cardiac risk with close monitoring with postoperative ICU monitoring and the patient will be started on Coreg and Lasix therapy. The patient has to have his hypokalemia corrected before surgery. Shashi Alba MD
--- NOTE | 2018-03-14 06:28 | CON ---
DATE: 03/13/2018 CHIEF COMPLAINT/REASON FOR CONSULTATION: The patient was referred by Dr. Moore. The patient is exhibiting increasing periods of confusion, has been reporting that he is hearing voices telling a doctor is calling the police for him. The patient noted to be having periods of paranoia. HISTORY OF PRESENT ILLNESS: This is the case of a 62-year-old male of [place] descent. The patient was admitted here for evaluation of left elbow, left , and left hip pain after he fell. The patient during workup was diagnosed to have fracture of his left hip as well as fracture of the left humerus. The patient was referred for evaluation. The patient has been having often abusive paranoia and reports hearing voices telling that the staff and the doctor is calling the police for him. The patient seems to be confused off and on. Today, he said he wants surgery and at times he wants to go home. He seems to be a poor historian. Medications reviewed showed that the patient was given Percocet for pain. Today, he is not complaining of pain. The patient also is trying to ambulate with a cane, but his mental status seems to be waxing and waning. PAST PSYCHIATRIC HISTORY: Denies any. PAST MEDICAL HISTORY: History of diabetes and hypertension. TOBACCO HISTORY: Denies any. PSYCHOSOCIAL HISTORY: The patient lives with a friend. OTHER MEDICAL PROBLEMS: The patient with history of vitamin D deficiency, history of hypokalemia. The patient has history of closed subcapital fracture of left femur and closed fracture of the left distal humerus. ALLERGIES: NO KNOWN ALLERGIES. LIST OF CURRENT MEDICATIONS: Includes Coreg, heparin, Percocet 5/325 one tablet q.6 p.r.n., Vasotec, and heparin. VITAL SIGNS: Temperature is 99, pulse 95, blood pressure 152/88, respirations 20, and oxygen saturation is 96%. REVIEW OF SYSTEMS: GENERAL: The patient is alert, verbal, with periods of confusions, seen in her room with staff. The patient states she wants surgery. SKIN: No diaphoresis. HEENT: No headache or dizziness. NECK: Supple. RESPIRATORY: Chest pain. GASTROINTESTINAL: No nausea. No vomiting. EXTREMITIES: The patient is complaining of pain in his left upper extremity and also in his left hip. NEUROLOGIC: Alert with periods of confusion. GENITOURINARY: No urinary problems, incontinence. MENTAL STATUS EXAMINATION: An elderly male who weighs 160 pounds. Mood is anxious and somatic. Affect is reactive. Speech is spontaneous. Thought process, confused off and on. Thought content has periods of paranoia and states that the staff and the doctors have called the police for him. No active suicidal or homicidal ideation. Attention and memory seem to be limited. Insight and judgment limited. Impulse control is fair at this time. IMPRESSION: Delirium, multifactorial, possibly drug-induced from the Percocet. PLAN AND RECOMMENDATIONS: The patient was seen and meds reviewed. Continue present management. The patient is for surgery once medically cleared. However, we will monitor his mental status accordingly. We will try to limit the use of the Percocet. Sometimes, patients, especially elderly, may develop acute confusional state and some psychotic symptoms when given Percocet as a side effect. We will hold ideation, psych meds for now. Casper Ulloa MD
[2018-03-14 07:28] VITALS: O2SAT 99
[2018-03-15] MEDS ORDERED: Pneumococcal 23-Valent Vaccine IM ONE (10:00)
== END 2018-03-13 20:50 | disposition left against medical advice (07) | DRG 236 ==
LOC: C.ER 14:39 → C.9E 21:17 → C.6T 03-12 13:52
PROVIDERS: ADMIT Internal Medicine; ATTEND Internal Medicine
DX: S72.012A Unspecified intracapsular fracture of left femur, initial encounter for closed fracture (principal); E87.6 Hypokalemia; E87.1 Hypo-osmolality and hyponatremia; I10 Essential (primary) hypertension; E55.9 Vitamin D deficiency, unspecified; E11.9 Type 2 diabetes mellitus without complications; D72.829 Elevated white blood cell count, unspecified; F05 Delirium due to known physiological condition; M25.022 Hemarthrosis, left elbow; S22.39XA Fracture of one rib, unspecified side, initial encounter for closed fracture; S42.302A Unspecified fracture of shaft of humerus, left arm, initial encounter for closed fracture; W19.XXXA Unspecified fall, initial encounter; Z87.891 Personal history of nicotine dependence